=== PATIENT | male | born 1965 | race Hispanic/Latino ===

== ENCOUNTER 2021-03-23 12:18 | Outpatient (CLI) | payer BC, OTHER | END 2021-03-23 12:19 | disposition home or self-care (01) | LOC: MADRAD 12:18 | PROVIDERS: ATTEND Neurological Surgery | DX: M54.9 Dorsalgia, unspecified (principal) | CPT/HCPCS: 72100 ==

== ENCOUNTER 2021-05-16 14:32 | Outpatient (CLI) | payer OTHER | END 2021-05-16 14:33 | disposition home or self-care (01) | LOC: MADRAD 14:32 | PROVIDERS: ATTEND Neurological Surgery | DX: S24.101A Unspecified injury at T1 level of thoracic spinal cord, initial encounter (principal); M54.50 Low back pain, unspecified; Z98.1 Arthrodesis status | CPT/HCPCS: 72100 ==